=== PATIENT | male | born 1970 | race Caucasian/White ===

== ENCOUNTER 2021-05-11 11:00 | Emergency (ER) | payer OTHER, SELFPAY ==
--- NOTE | ~2021-05-11 | XR_ITS ---
EXAMINATION: XR hand RT min 3V DATE: 05/11/2021 11:34 INDICATION: Right hand injury and swelling. TECHNIQUE: 3 views of right hand were obtained. COMPARISON: None. FINDINGS: Bone alignment is normal. No fracture. Joint spaces are well maintained. IMPRESSION: 1. No fracture. Reviewed, dictated and finalized at location A. [employer] IMPRESSION: 1. No fracture.
[2021-05-11 11:10] VITALS: BP 135/65; PULSE 74; RESP 16; TEMP 37.1; O2SAT 98
[2021-05-11 11:23] VITALS: BP 135/65; PULSE 74; RESP 16; TEMP 37.1; O2SAT 98
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
== END 2021-05-11 11:53 | disposition home or self-care (01) ==
PROVIDERS: Emergency Provider Nurse Practitioner
DX: S63.610A Unspecified sprain of right index finger, initial encounter (principal); Y09 Assault by unspecified means; Y99.0 Civilian activity done for income or pay; Z79.82 Long term (current) use of aspirin; E78.00 Pure hypercholesterolemia, unspecified; E11.9 Type 2 diabetes mellitus without complications; E03.9 Hypothyroidism, unspecified; Z96.41 Presence of insulin pump (external) (internal)
CPT/HCPCS: 29130; 73130; 99213; G0463